=== PATIENT | male | born 1950 | race Caucasian/White ===

== ENCOUNTER 2018-01-08 16:38 | Observation (INO) | payer MEDICARE, OTHER ==
[~2018-01-08] VITALS: Ht 177.8 cm; Wt 81.3 kg
[2018-01-08 16:50] VITALS: BP 156/95; PULSE 79; RESP 16; TEMP 98.2; O2SAT 97
[2018-01-08] MEDS ORDERED: PRAM0.12 PO ×2 (16:56)
[2018-01-08] MEDS ORDERED: SODIUM CHLOR 0.9% 1000 ML INJ 1,000 ML IV ONE (17:00)
[2018-01-08] MEDS ORDERED: ONDANSETRON ODT 4 MG TAB PO ONE (17:00)
[2018-01-08] MEDS ORDERED: SODIUM CHLORIDE 0.9% FLUSH 10 ML FLUSH IV FLUSH PRN ×2 (17:00→18:45)
[2018-01-08] MEDS ORDERED: MORPHINE SULFATE 4 MG/ML INJ IV PUSH ONE (17:00)
--- NOTE | 2018-01-08 17:12 | PD ---
HPI Chief Complaint: Flank/Kidney Pain Time Seen by Provider: 16:54 Travel History International Travel<30 days: No Contact w/Intl Traveler<30days: No Traveled to known affect area: No History of Present Illness HPI 67-year-old male with history of kidney stones here for evaluation of right flank pain. The symptoms started 2 weeks ago, then seemed to have improved, then returned 2 days ago. The pain has been constant, sharp, radiates to his right lower abdomen, severe, associated with nausea and vomiting. He has not noted any hematuria. No dysuria. No fevers or chills. He had an outpatient renal scan performed this afternoon which revealed an obstructed right kidney. His urologist is Dr. Domingo. [facility] Social History Tobacco Use: No Allergies-Medications (Allergen,Severity, Reaction): Coded Allergies: No Known Allergies (Unverified , 01/08/18) Reported Meds & Prescriptions Reported Meds & Active Scripts Active Reported Pramipexole (Pramipexole Dihydrochloride) 0.125 Mg Tab 0.125 Mg PO DAILY Review of Systems Except as stated in HPI: all other systems reviewed are Neg Physical Exam Narrative GENERAL: Well-developed, well-nourished, awake, alert, no apparent distress. SKIN: Focused skin assessment warm/dry. No rash. HEAD: Atraumatic. Normocephalic. EYES: Pupils equal and round. No scleral icterus. No injection or drainage. ENT: No nasal bleeding or discharge. Mucous membranes pink and moist. NECK: Trachea midline. No JVD. CARDIOVASCULAR: Regular rate and rhythm. No murmur appreciated. RESPIRATORY: No accessory muscle use. Clear to auscultation. Breath sounds equal bilaterally. GASTROINTESTINAL: Abdomen soft, non-tender, nondistended. MUSCULOSKELETAL: No obvious deformities. No clubbing. No cyanosis. No edema. Moderate right CVA tenderness. No left CVA tenderness. No midline vertebral step-off or tenderness. NEUROLOGICAL: Awake and alert. No obvious cranial nerve deficits. Motor grossly within normal limits. Normal speech. PSYCHIATRIC: Appropriate mood and affect; insight and judgment normal. Data Data Last Documented VS Vital Signs Date Time Temp Pulse Resp B/P (MAP) Pulse Ox O2 Delivery O2 Flow Rate FiO2 01/08/18 18:17 80 18 139/83 (101) 99 01/08/18 17:50 Room Air 01/08/18 16:50 98.2 Orders Orders Complete Blood Count With Diff (01/08/18 16:59) Comprehensive Metabolic Panel (01/08/18 16:59) Prothrombin Time / Inr (Pt) (01/08/18 16:59) Act Partial Throm Time (Ptt) (01/08/18 16:59) Urinalysis - C+S If Indicated (01/08/18 16:59) Ct Abd/Pel W/O Iv Contrast (01/08/18 16:59) Iv Access Insert/Monitor (01/08/18 16:59) Ecg Monitoring (01/08/18 16:59) Oximetry (01/08/18 16:59) Sodium Chloride 0.9% Flush (Ns Flush) (01/08/18 17:00) Morphine Inj (Morphine Inj) (01/08/18 17:00) Ondansetron Odt (Zofran Odt) (01/08/18 17:00) Sodium Chlor 0.9% 1000 Ml Inj (Ns 1000 M (01/08/18 17:00) Ketorolac Inj (Toradol Inj) (01/08/18 17:45) Sodium Chlor 0.9% 1000 Ml Inj (Ns 1000 M (01/08/18 17:50) Admit Order (Ed Use Only) (01/08/18 18:32) Labs Laboratory Tests Test 01/08/18 17:10 01/08/18 17:15 Urine Color LIGHT-YELLOW Urine Turbidity CLEAR Urine pH 6.5 Urine Specific [place] 1.005 Urine Protein NEG mg/dL Urine Glucose (UA) NEG mg/dL Urine Ketones NEG mg/dL Urine Occult Blood MOD Urine Nitrite NEG Urine Bilirubin NEG Urine Urobilinogen LESS THAN 2.0 MG/DL Urine Leukocyte Esterase TRACE Urine RBC 39 /hpf Urine WBC 1 /hpf Microscopic Urinalysis Comment CULT NOT INDICATED White Blood Count 7.3 TH/MM3 Red Blood Count 5.33 MIL/MM3 Hemoglobin 15.5 GM/DL Hematocrit 45.8 % Mean Corpuscular Volume 86.0 FL Mean Corpuscular Hemoglobin 29.1 PG Mean Corpuscular Hemoglobin Concent 33.9 % Red Cell Distribution Width 13.4 % Platelet Count 186 TH/MM3 Mean Platelet Volume 8.7 FL Neutrophils (%) (Auto) 77.9 % Lymphocytes (%) (Auto) 13.2 % Monocytes (%) (Auto) 8.4 % Eosinophils (%) (Auto) 0.3 % Basophils (%) (Auto) 0.2 % Neutrophils # (Auto) 5.7 TH/MM3 Lymphocytes # (Auto) 1.0 TH/MM3 Monocytes # (Auto) 0.6 TH/MM3 Eosinophils # (Auto) 0.0 TH/MM3 Basophils # (Auto) 0.0 TH/MM3 CBC Comment DIFF FINAL Differential Comment Prothrombin Time 10.3 SEC Prothromb Time International Ratio 1.0 RATIO Activated Partial Thromboplast Time 27.0 SEC Blood Urea Nitrogen 28 MG/DL Creatinine 2.65 MG/DL Random Glucose 100 MG/DL Total Protein 7.3 GM/DL Albumin 3.7 GM/DL Calcium Level 8.6 MG/DL Alkaline Phosphatase 89 U/L Aspartate Amino Transf (AST/SGOT) 20 U/L Alanine Aminotransferase (ALT/SGPT) 22 U/L Total Bilirubin 0.9 MG/DL Sodium Level 138 MEQ/L Potassium Level 3.9 MEQ/L Chloride Level 102 MEQ/L Carbon Dioxide Level 28.7 MEQ/L Anion Gap 7 MEQ/L Estimat Glomerular Filtration Rate 24 ML/MIN MDM Medical Decision Making Medical Screen Exam Complete: Yes Emergency Medical Condition: Yes Differential Diagnosis Nephrolithiasis, ureterolithiasis, obstructive uropathy, pyelonephritis Narrative Course Vital signs reviewed. CBC is essentially unremarkable. CMP is remarkable for BUN 20, creatinine 2.65, GFR 24, otherwise unremarkable. UA shows moderate occult blood, 39 RBCs, not suggestive of UTI. CT abdomen pelvis: CONCLUSION: 1. 3 right ureteral calculi and 2 left ureteral calculi with bilateral hydronephrosis right greater than left. 2. Multiple bilateral renal calculi as well. 3. Multiple low-attenuation lesions in the liver most characteristic of cysts. 6:25 PM: Urologist Dr. Scott is at the bedside. He will admit the patient to his service. Diagnosis Primary Impression: Ureterolithiasis Additional Impression: Obstructive uropathy Jasvir Méndez MD January 08, 2018 17:12
[2018-01-08 17:32] LABS: BILIRUBIN, URINE NEG (NEG); BLOOD, URINE MOD (NEG); GLUCOSE,URINE NEG (NEG); KETONE, URINE NEG (NEG); NITRITE,URINE NEG (NEG); PH, URINE 6.5 (5.0-8.5); URINE COLOR LIGHT-YELLOW (YELLW/STRAW); URINE LEUKOCYTE ESTERASE TRACE (NEG)
[2018-01-08 17:36] LABS: PROTHROMBIN TIME - PATIENT 10.3 SEC (9.8-11.6)
[2018-01-08 17:37] LABS: AUTOMATED NEUTROPHIL # 5.7 TH/MM3 (1.8-7.7); BASOPHIL % 0.2 % (0.0-2.0); EOSINOPHIL % 0.3 % (0.0-4.0); HEMATOCRIT 45.8 % (39.0-51.0); HEMOGLOBIN 15.5 GM/DL (13.0-17.0); LYMPH % 13.2 % (9.0-44.0); MEAN CORPUSCULAR HEMOGLOBIN 29.1 PG (27.0-34.0); MEAN CORPUSCULAR HGB CONC 33.9 % (32.0-36.0); MEAN PLATELET VOLUME 8.7 FL (7.0-11.0); MONO % 8.4 % (0.0-8.0); MONOCYTE # 0.6 TH/MM3 (0-0.9); NEUT % 77.9 % (16.0-70.0); PLATELET COUNT 186 TH/MM3 (150-450); RED BLOOD COUNT 5.33 MIL/MM3 (4.50-5.90); RED CELL DISTRIBUTION WIDTH 13.4 % (11.6-17.2); WHITE BLOOD COUNT 7.3 TH/MM3 (4.0-11.0)
[2018-01-08 17:42] LABS: ALBUMIN 3.7 GM/DL (3.4-5.0); AST (GOT) 20 U/L (15-37); BICARBONATE 28.7 MEQ/L (21.0-32.0); BLOOD UREA NITROGEN 28 MG/DL (7-18); CALCIUM 8.6 MG/DL (8.5-10.1); CHLORIDE 102 MEQ/L (98-107); CREATININE 2.65 MG/DL (0.60-1.30); GLOMERULAR FILTRATION RATE 24 ML/MIN (>89); GLUCOSE,RANDOM 100 MG/DL (74-106); SODIUM (NA) 138 MEQ/L (136-145)
[2018-01-08 17:43] LABS: ALT (GPT) 22 U/L (12-78)
[2018-01-08 17:45] LABS: ALKALINE PHOSPHATASE 89 U/L (45-117); TOTAL BILIRUBIN ADULT 0.9 MG/DL (0.2-1.0); TOTAL PROTEIN 7.3 GM/DL (6.4-8.2)
[2018-01-08] MEDS ORDERED: KETOROLAC TROMETHAMINE 30 MG/ML (IVP) VIAL IV PUSH ONE (17:45)
[2018-01-08 17:50] VITALS: PULSE 86; RESP 18; O2SAT 98
[2018-01-08] MEDS ORDERED: SODIUM CHLOR 0.9% 1000 ML INJ 1,000 ML IV SCH (17:50)
[2018-01-08 18:17] VITALS: BP 139/83; PULSE 80; RESP 18; O2SAT 99
--- NOTE | 2018-01-08 18:20 | RADRPT ---
EXAM DATE: 01/08/2018 6:02 PM EDT AGE/SEX: 67 years / Male INDICATIONS: Right flank pain. CLINICAL DATA: This is the patient's initial encounter. Patient reports that signs and symptoms have been present for 1 week and indicates a pain score of 9/10. MEDICAL/SURGICAL HISTORY: Renal calculi. Diabetes. Appendectomy. RADIATION DOSE: 8.34 CTDI (mGy) COMPARISON: None. TECHNIQUE: Multiple contiguous axial images were obtained through the abdomen. Images were obtained using multiple row detector helical technique. Using dose reduction techniques, radiation dose was ke pt as low as reasonably achievable to obtain optimal diagnostic quality images. FINDINGS: Lower Lungs: The visualized lower lungs are clear. Liver: The liver has a homogeneous density with multiple scattered low-attenuation lesions. There is no dilation of the biliary tree. Spleen: Homogeneous density without enlargement. Pancreas: Unremarkable without mass or calcification. Kidneys: The right kidney is prominent and demonstrates moderate to severe hydronephrosis with multi ple right renal calculi measuring up to approximately a centimeter. There are 3 right ureteral calcul i. There is a proximal 8 mm ureteral calculus as well as 2 distal ureteral calculi measuring approxim ately 4 and 7 mm in diameter. The left kidney demonstrates moderate hydronephrosis and multiple calcu li as well measuring up to approximately a centimeter. There is mild dilatation of the ureter and the re are 2 distal left ureteral calculi. These measure 5 to 6 mm in greatest diameter. Adrenal Glands: Unremarkable. Aorta: The aorta and proximal iliac vessels are grossly unremarkable without aneurysmal dilation. Bowel/Mesentery: The bowel loops are grossly unremarkable. The cecum and sigmoid colon have a normal configuration. Abdominal Wall: Intact. Retroperitoneum: No evidence of adenopathy in the retrocrural, para-aortic, or deep pelvic regions. Bladder: Contours are smooth. Reproductive Organs: No abnormal masses or calcifications seen. Inguinal: The inguinal region is unremarkable without evidence of adenopathy. Bony Structures: Unremarkable. CONCLUSION: 1. 3 right ureteral calculi and 2 left ureteral calculi with bilateral hydronephrosis right greater than left. 2. Multiple bilateral renal calculi as well. 3. Multiple low-attenuation lesions in the liver most characteristic of cysts. Electronically signed by: Vinny Reis MD 01/08/2018 6:19 PM EDT
[2018-01-08] MEDS ORDERED: HYDROmorphone HCL PF 2 MG/ML VIAL IV PUSH PRN (18:45)
[2018-01-08] MEDS ORDERED: HYDROmorphone HCL PF 1 MG/ML VIAL IV PUSH PRN (18:45)
[2018-01-08] MEDS ORDERED: oxyCODONE/ACETAMINOPHEN 5 MG/325 MG TAB PO PRN ×2 (18:45)
[2018-01-08] MEDS ORDERED: Post-op Orders (for Pharmacy) XX ONE (18:45)
--- NOTE | 2018-01-08 18:45 | HHI.HP ---
HPI Service Urology Primary Care Physician No Primary Care Physician Admission Diagnosis Ureterolithiasis, obstructive uropathy Diagnoses: Chief Complaint: Right flank pain History of Present Illness 67-year-old gentleman with history uric acid nephrolithiasis who presents now with acute onset right flank pain. Patient actually had a renal scan with Lasix washout ordered by his established urologist Dr. Guy that demonstrated obstruction of the right kidney. Patient was separately transferred from radiology to the emergency room for further evaluation. A CT scan stone protocol study was ordered that demonstrated a large obstructing right proximal ureteral calculus along with multiple bilateral renal calculi. I discussed placing a right ureteral stent this evening however the patient adamantly refused this. He states that he did have a stent in the past which she did not tolerate well. In fact he said that the stent caused more pain than the stones themselves. I discussed placing him in observation overnight and release him in the morning if his pain is adequately controlled with oral medication. I discussed that the shockwave lithotripsy machine is not available here at [facility] for at least 2 weeks. Review of Systems Constitutional: DENIES: Fever, Chills Cardiovascular: DENIES: Chest pain Gastrointestinal: COMPLAINS OF: Abdominal pain (Right side) Genitourinary: DENIES: Hematuria, Dysuria Musculoskeletal: COMPLAINS OF: Back pain (Right flank) Except as stated in HPI: all other systems reviewed are Neg Past Family Social History Past Medical History Nephrolithiasis Chronic back pain Past Surgical History Status post laminectomy Status post knee arthroscopy Reported Medications Refer to EMR Allergies: Coded Allergies: No Known Allergies (Unverified , 01/08/18) Active Ordered Medications Refer to EMR Family History Reviewed and noncontributory Social History Non-smoker No history alcohol abuse Physical Exam Vital Signs Date Time Temp Pulse Resp B/P (MAP) Pulse Ox O2 Delivery O2 Flow Rate FiO2 01/08/18 18:17 80 18 139/83 (101) 99 01/08/18 17:50 86 18 98 Room Air 01/08/18 16:50 98.2 79 16 156/95 (115) 97 Physical Exam GENERAL: This is a well-nourished, well-developed patient, in no apparent distress. SKIN: No rashes, ecchymoses or lesions. Cool and dry. HEAD: Atraumatic. Normocephalic. No temporal or scalp tenderness. EYES: Pupils equal round and reactive. Extraocular motions intact. No scleral icterus. No injection or drainage. ENT: Nose without bleeding, purulent drainage or septal hematoma. Throat without erythema, tonsillar hypertrophy or exudate. Uvula midline. Airway patent. NECK: Trachea midline. No JVD or lymphadenopathy. Supple, nontender, no meningeal signs. CARDIOVASCULAR: Regular rate and rhythm without murmurs, gallops, or rubs. RESPIRATORY: Clear to auscultation. Breath sounds equal bilaterally. No wheezes , rales, or rhonchi. GASTROINTESTINAL: Abdomen soft, non-tender, nondistended. No hepato-splenomegaly , or palpable masses. No guarding. GENITOURINARY: No CVA tenderness MUSCULOSKELETAL: Extremities without clubbing, cyanosis, or edema. No joint tenderness, effusion, or edema noted. No calf tenderness. Negative Homans sign bilaterally. NEUROLOGICAL: Awake and alert. Cranial nerves II through XII intact. Motor and sensory grossly within normal limits. Five out of 5 muscle strength in all muscle groups. Normal speech. Lab results reviewed: Yes Laboratory Tests Test 01/08/18 17:10 01/08/18 17:15 Urine Color LIGHT-YELLOW Urine Turbidity CLEAR Urine pH 6.5 Urine Specific [place] 1.005 Urine Protein NEG Urine Glucose (UA) NEG Urine Ketones NEG Urine Occult Blood MOD Urine Nitrite NEG Urine Bilirubin NEG Urine Urobilinogen LESS THAN 2.0 Urine Leukocyte Esterase TRACE Urine RBC 39 Urine WBC 1 Microscopic Urinalysis Comment CULT NOT INDICATED White Blood Count 7.3 Red Blood Count 5.33 Hemoglobin 15.5 Hematocrit 45.8 Mean Corpuscular Volume 86.0 Mean Corpuscular Hemoglobin 29.1 Mean Corpuscular Hemoglobin Concent 33.9 Red Cell Distribution Width 13.4 Platelet Count 186 Mean Platelet Volume 8.7 Neutrophils (%) (Auto) 77.9 Lymphocytes (%) (Auto) 13.2 Monocytes (%) (Auto) 8.4 Eosinophils (%) (Auto) 0.3 Basophils (%) (Auto) 0.2 Neutrophils # (Auto) 5.7 Lymphocytes # (Auto) 1.0 Monocytes # (Auto) 0.6 Eosinophils # (Auto) 0.0 Basophils # (Auto) 0.0 CBC Comment DIFF FINAL Differential Comment Prothrombin Time 10.3 Prothromb Time International Ratio 1.0 Activated Partial Thromboplast Time 27.0 Blood Urea Nitrogen 28 Creatinine 2.65 Random Glucose 100 Total Protein 7.3 Albumin 3.7 Calcium Level 8.6 Alkaline Phosphatase 89 Aspartate Amino Transf (AST/SGOT) 20 Alanine Aminotransferase (ALT/SGPT) 22 Total Bilirubin 0.9 Sodium Level 138 Potassium Level 3.9 Chloride Level 102 Carbon Dioxide Level 28.7 Anion Gap 7 Estimat Glomerular Filtration Rate 24 Result Diagram: 01/08/18 1715 01/08/18 1715 Personally reviewed images: Yes Imaging Last Impressions Abdomen/Pelvis CT 01/08/18 1000 Signed Impressions: CONCLUSION: 1. 3 right ureteral calculi and 2 left ureteral calculi with bilateral hydrone phrosis right greater than left. 2. Multiple bilateral renal calculi as well. 3. Multiple low-attenuation lesions in the liver most characteristic of cysts. Caprini VTE Risk Assessment Caprini VTE Risk Assessment: No/Low Risk (score <= 1) Caprini Risk Assessment Model Point Value = 1 Point Value = 2 Point Value = 3 Point Value = 5 Age 41-60 Minor surgery BMI > 25 kg/m2 Swollen legs Varicose veins or History of unexplained or recurrent spontaneous Oral contraceptives or hormone replacement Sepsis (< 1 month) Serious lung disease, including pneumonia (< 1 month) Abnormal pulmonary function Acute myocardial infarction Congestive heart failure (< 1 month) History of inflammatory bowel disease Medical patient at bed rest Age 61-74 Arthroscopic surgery Major open surgery (> 45 min) Laparoscopic surgery (> 45 min) Malignancy Confined to bed (> 72 hours) Immobilizing plaster cast Central venous access Age >= 75 History of VTE Family history of VTE Factor V Leiden Prothrombin [id number] Lupus anticoagulant Anticardiolipin antibodies Elevated serum homocysteine Heparin-induced thrombocytopenia Other congenital or acquired thrombophilia Stroke (< 1 month) Elective arthroplasty Hip, pelvis, or leg fracture Acute spinal cord injury (< 1 month) Prophylaxis Regimen Total Risk Factor Score Risk Level Prophylaxis Regimen 0-1 Low Early ambulation 2 Moderate Order ONE of the following: *Sequential Compression Device (SCD) *Heparin 5000 units SQ BID 3-4 Higher Order ONE of the following medications: *Heparin 5000 units SQ TID *Enoxaparin/Lovenox 40 mg SQ daily (WT < 150 kg, CrCl > 30 mL/min) *Enoxaparin/Lovenox 30 mg SQ daily (WT < 150 kg, CrCl > 10-29 mL/min) *Enoxaparin/Lovenox 30 mg SQ BID (WT < 150 kg, CrCl > 30 mL/min) AND/OR *Sequential Compression Device (SCD) 5 or more Highest Order ONE of the following medications: *Heparin 5000 units SQ TID (Preferred with Epidurals) *Enoxaparin/Lovenox 40 mg SQ daily (WT < 150 kg, CrCl > 30 mL/min) *Enoxaparin/Lovenox 30 mg SQ daily (WT < 150 kg, CrCl > 10-29 mL/min) *Enoxaparin/Lovenox 30 mg SQ BID (WT < 150 kg, CrCl > 30 mL/min) AND *Sequential Compression Device (SCD) Assessment and Plan Assessment and Plan Urologic impression: 1. Right flank pain related to obstructing right proximal ureteral calculus 2. Bilateral nephrolithiasis Plan: 1. Place in observation overnight for pain management 2. Discharge home tomorrow morning pain managed with oral medications and vital stable 3. Place a right ureteral stent if pain worsens and patient agrees Isidro Scott MD January 08, 2018 18:45
[2018-01-08] MEDS ORDERED: ONDANSETRON ODT 4 MG TAB PO PRN (19:00)
[2018-01-08 19:20] VITALS: BP 123/74; PULSE 85; RESP 16; O2SAT 97
[2018-01-08] MEDS: DEXT 5%-NACL 0.45% 1000 ML INJ 1,000 ML IV SCH (20:08)
[2018-01-08] MEDS: SODIUM CHLORIDE 0.9% FLUSH 10 ML FLUSH IV FLUSH SCH (20:20)
[2018-01-08 21:36] VITALS: BP 124/76; PULSE 68; RESP 18; TEMP 97.5; O2SAT 97
[2018-01-08 23:28] VITALS: BP 114/62; PULSE 66; RESP 17; TEMP 98.3; O2SAT 96
[2018-01-09 04:20] VITALS: BP 107/61; PULSE 63; RESP 18; TEMP 97.9; O2SAT 95
[2018-01-09 07:08] LABS: HEMATOCRIT 39.9 % (39.0-51.0); HEMOGLOBIN 13.3 GM/DL (13.0-17.0); MEAN CELL VOLUME 86.4 FL (80.0-100.0); MEAN CORPUSCULAR HEMOGLOBIN 28.7 PG (27.0-34.0); MEAN CORPUSCULAR HGB CONC 33.2 % (32.0-36.0); MEAN PLATELET VOLUME 8.7 FL (7.0-11.0); PLATELET COUNT 154 TH/MM3 (150-450); RED BLOOD COUNT 4.62 MIL/MM3 (4.50-5.90); RED CELL DISTRIBUTION WIDTH 13.6 % (11.6-17.2); WHITE BLOOD COUNT 5.1 TH/MM3 (4.0-11.0)
[2018-01-09 07:37] LABS: BICARBONATE 27.1 MEQ/L (21.0-32.0); CALCIUM 7.9 MG/DL (8.5-10.1); CREATININE 3.89 MG/DL (0.60-1.30)
[2018-01-09 08:00] VITALS: BP 115/66; PULSE 59; RESP 18; TEMP 97.4; O2SAT 98
[2018-01-09] MEDS: DEXT 5%-NACL 0.45% 1000 ML INJ 1,000 ML IV SCH (08:03)
[2018-01-09] MEDS: SODIUM CHLORIDE 0.9% FLUSH 10 ML FLUSH IV FLUSH SCH (08:24)
--- NOTE | 2018-01-09 08:25 | HHI.DS ---
Discharge Summary Admission Date January 08, 2018 at 18:33 Admitting Diagnosis Ureterolithiasis, obstructive uropathy (1) Ureterolithiasis Diagnosis: Principal ICD Codes: N20.1 - Calculus of ureter Status: Acute (2) Obstructive uropathy Diagnosis: Principal ICD Codes: N13.9 - Obstructive and reflux uropathy, unspecified Status: Acute Procedures None Brief History Patient presented to the emergency room with right flank pain after undergoing an outpatient Lasix renal scan that demonstrated obstruction of the right kidney. Further workup included a CT scan stone protocol that demonstrated a large obstructing right proximal ureteral calculus causing hydronephrosis. Also noted were multiple bilateral renal calculi. Patient placed on observation for pain management. CBC/BMP: 01/09/18 0606 01/09/18 0606 Significant Findings Laboratory Tests Test 01/08/18 17:10 01/08/18 17:15 01/09/18 06:06 Urine Occult Blood MOD (NEG) Urine Leukocyte Esterase TRACE (NEG) Urine RBC 39 /hpf (0-3) Neutrophils (%) (Auto) 77.9 % (16.0-70.0) Monocytes (%) (Auto) 8.4 % (0.0-8.0) Blood Urea Nitrogen 28 MG/DL (7-18) 33 MG/DL (7-18) Creatinine 2.65 MG/DL (0.60-1.30) 3.89 MG/DL (0.60-1.30) Estimat Glomerular Filtration Rate 24 ML/MIN (>89) 16 ML/MIN (>89) Calcium Level 7.9 MG/DL (8.5-10.1) PE at Discharge Abdomen soft, nondistended, nontender No CVA tenderness Extremities well-perfused, nontender Hospital Course Patient placed under observation for pain management. He only required 1 oral dose of Percocet for pain management. On the morning of January 09, the patient's pain was adequately controlled. Arrangements already had been made for the patient to be discharged home with follow-up over at his established urology group to undergo right-sided shockwave lithotripsy. Laboratory studies demonstrated elevation of the serum creatinine and patient was advised to let his established urologist know about this. I had offered the patient the opportunity to have a right ureteral stent placed soon after arrival to the emergency room however the patient refused as he had not tolerated statins well in the past. Pt Condition on Discharge: Good Discharge Disposition: Discharge Home Discharge Instructions DIET: Follow Instructions for: Nothing By Mouth Activities you can perform: Regular-No Restrictions Isidro Scott MD January 09, 2018 08:25
== END 2018-01-09 08:50 | disposition home or self-care (01) ==
LOC: NEPD 16:38 → NEDA 18:33 → N06B 21:18
PROVIDERS: ADMIT Urology; ATTEND Urology
DX: N20.2 Calculus of kidney with calculus of ureter (principal); N13.39 Other hydronephrosis; N13.9 Obstructive and reflux uropathy, unspecified; G89.29 Other chronic pain; R10.31 Right lower quadrant pain; Z87.442 Personal history of urinary calculi
CPT/HCPCS: 74176; 80048; 80053; 81001; 85025; 85027; 85610; 85730; 96361; 96374; 96375; 99285; G0378; J1885; J2270; J7030

== ENCOUNTER → 2018-01-08 | Outpatient (CLI) | payer MEDICARE, OTHER ==
[~2018-01-08] MED LIST: ALLO100T PO; CIPR-9 PO; CIPR250T52 PO; COLA100C5 PO; FUROSEMIDE 40 MG/4 ML VIAL ONE; IMIT50TA PO; OXYC1TAB63 PO; POTA10CA PO; PRAM0.12 PO; TAMS5CAP PO
--- NOTE | 2018-01-08 19:33 | RADRPT ---
EXAM DATE: 01/08/2018 4:39 PM EDT AGE/SEX: 67 years / Male INDICATIONS: Right flank pain. Kidney stones. CLINICAL DATA: This is the patient's initial encounter. Patient reports that signs and symptoms have been present for 1 day and indicates a pain score of 4/10. MEDICAL/SURGICAL HISTORY: . . Back. COMPARISON: [facility] [place]ELVIS W/O CONTRAST, 01/08/2018. . TECHNIQUE: Following the intravenous administration of radiotracer, dynamic imaging of flow and excre tory phases was performed. DOSE: 20.8 mCi Tc99m DTPA IV MEDICATION: 40 mg Lasix IV at 13 min minutes. post inj FINDINGS: CT scans demonstrated multiple bilateral renal and ureteral stones with bilateral hydronep hrosis. Flow: There is symmetric arrival of bolus to both kidneys. There is homogeneous perfusion to both ki dneys. Differential Function: 44 % on Right. 56 % on Left. Excretion: There is normal renal cortical transit time and prompt excretion of radiotracer from the left kidney. On the right side, there is an obstructive pattern with retained cortical activity and a n increasing nephrogram. There is some minimal excretion into the ureter, with less than 5% decrease, characteristic of a high-grade obstruction. CONCLUSION: 1. High-grade obstructive pattern on the right side. 2. On the left side, there is prompt excretion of radiotracer which occurs prior to Lasix administra tion. This suggests that there is no significant obstruction despite multiple distal ureteral stones. Electronically signed by: Marques James MD 01/08/2018 7:32 PM EDT
== END ==
LOC: HRAD 15:40
DX: N13.30 Unspecified hydronephrosis (principal)
CPT/HCPCS: 78708; A9539; J1940

== ENCOUNTER 2018-01-11 17:01 | Inpatient (IN) | payer MEDICARE ==
[~2018-01-11] VITALS: Ht 177.8 cm; Wt 78.0 kg
[~2018-01-11 17:01] MED LIST changes: -ALLO100T PO; -CIPR-9 PO; -CIPR250T52 PO; -COLA100C5 PO; -FUROSEMIDE 40 MG/4 ML VIAL ONE; -IMIT50TA PO; -OXYC1TAB63 PO; -POTA10CA PO; -TAMS5CAP PO
[2018-01-11 17:05] VITALS: BP 139/76; PULSE 75; RESP 20; TEMP 98.3; O2SAT 97
[2018-01-11] MEDS ORDERED: POTA10CA PO ×2 (17:27)
[2018-01-11] MEDS ORDERED: TAMS5CAP PO (17:28)
[2018-01-11] MEDS ORDERED: ALLO100T PO ×2 (17:28)
[2018-01-11] MEDS ORDERED: RESP: ALBUTEROL 2.5 MG/IPRATROPIUM 0.5 MG NEB (SCH) INH ONE (17:30)
[2018-01-11] MEDS ORDERED: ONDANSETRON ODT 4 MG TAB PO ONE (17:30)
[2018-01-11] MEDS ORDERED: SODIUM CHLOR 0.9% 1000 ML INJ 1,000 ML IV ONE (17:30)
[2018-01-11] MEDS ORDERED: HYDROmorphone HCL PF 2 MG/ML VIAL IV PUSH ONE ×2 (17:30→19:45)
--- NOTE | 2018-01-11 17:35 | PD ---
HPI Chief Complaint: Flank/Kidney Pain Time Seen by Provider: 17:13 Travel History International Travel<30 days: No Contact w/Intl Traveler<30days: No Traveled to known affect area: No History of Present Illness HPI 67 years old male complains of left flank pain. Patient was admitted January 08 and discharged January 09 from [facility] with diagnosis of ureterolithiasis and obstructive uropathy. Patient was seen by Dr. Hillman, his urologist and had bilateral lithotripsy 2 days ago with ureteral stent placement on the right side. Patient was discharged home with pain medication. Patient states that he started having severe left flank pain and left low back pain since last night. Patient states that he has intermittent chills at home. Patient states that he has severe nausea unable to keep down pain medication. Patient has been taking Zofran as needed for nausea without much relief. Patient denies any chest pain or shortness of breath. Patient denies any dysuria frequency. On a scale of 1-10 the pain is a 10. PFSH Past Medical History Diminished Hearing: No Kidney Stones: Yes Musculoskeletal: Yes (CHRONIC BACK PAIN ) Neurologic: Yes (RLS) Psychiatric: No Immunizations Current: Yes Past Surgical History Tonsillectomy: Yes Social History Alcohol Use: No Tobacco Use: No Substance Use: No Allergies-Medications (Allergen,Severity, Reaction): Coded Allergies: No Known Allergies (Unverified , 01/11/18) Reported Meds & Prescriptions Reported Meds & Active Scripts Active Reported Allopurinol 100 Mg Tab 100 Mg PO DAILY Flomax (Tamsulosin HCl) 0.4 Mg Cap 0.4 Mg PO HS Potassium Chloride ER (Potassium Chloride) 10 Meq Cap 10 Meq PO TID Pramipexole (Pramipexole Dihydrochloride) 0.125 Mg Tab 0.125 Mg PO DAILY Review of Systems General / Constitutional: No: Fever Eyes: No: Visual changes HENT: No: Headaches Cardiovascular: No: Chest Pain or Discomfort Respiratory: No: Shortness of Breath Gastrointestinal: Positive: Nausea, Abdominal Pain Genitourinary: No: Dysuria Musculoskeletal: No: Pain Skin: No Rash Neurologic: No: Weakness Psychiatric: No: Depression Endocrine: No: Polydipsia Hematologic/Lymphatic: No: Easy Bruising Physical Exam Narrative GENERAL: Well-nourished, well-developed patient. SKIN: Focused skin assessment warm/dry. HEAD: Normocephalic. EYES: No scleral icterus. No injection or drainage. NECK: Supple, trachea midline. No JVD or lymphadenopathy. CARDIOVASCULAR: Regular rate and rhythm without murmurs, gallops, or rubs. RESPIRATORY: Breath sounds equal bilaterally. No accessory muscle use. GASTROINTESTINAL: Abdomen soft, nondistended. Patient has mild tenderness on palpation left lower quadrant of the abdomen. No rebound tenderness. No mass. MUSCULOSKELETAL: No cyanosis, or edema. BACK: Patient has moderate tenderness on palpation left flank and left back area. Neurologic exam normal. Data Data Last Documented VS Vital Signs Date Time Temp Pulse Resp B/P (MAP) Pulse Ox O2 Delivery O2 Flow Rate FiO2 01/11/18 18:37 20 01/11/18 17:05 98.3 75 139/76 (97) 97 Orders Orders Albuterol-Ipratropium Neb (Duoneb Neb) (01/11/18 17:30) Electrocardiogram (01/11/18 17:25) Complete Blood Count With Diff (01/11/18 17:25) Comprehensive Metabolic Panel (01/11/18 17:25) Prothrombin Time / Inr (Pt) (01/11/18 17:25) Act Partial Throm Time (Ptt) (01/11/18 17:25) Urinalysis - C+S If Indicated (01/11/18 17:25) Chest, Single Ap (01/11/18 17:25) Ct Abd/Pel W/O Iv Contrast (01/11/18 17:25) Iv Access Insert/Monitor (01/11/18 17:25) Ecg Monitoring (01/11/18 17:25) Oximetry (01/11/18 17:25) Sodium Chlor 0.9% 1000 Ml Inj (Ns 1000 M (01/11/18 17:30) Hydromorphone Pf Inj (Dilaudid Pf Inj) (01/11/18 17:30) Ondansetron Odt (Zofran Odt) (01/11/18 17:30) Metoclopramide Inj (Reglan Inj) (01/11/18 18:00) Diphenhydramine Inj (Benadryl Inj) (01/11/18 18:00) Labs Laboratory Tests Test 01/11/18 17:38 01/11/18 18:20 White Blood Count 6.5 TH/MM3 Red Blood Count 4.67 MIL/MM3 Hemoglobin 13.3 GM/DL Hematocrit 40.0 % Mean Corpuscular Volume 85.7 FL Mean Corpuscular Hemoglobin 28.6 PG Mean Corpuscular Hemoglobin Concent 33.3 % Red Cell Distribution Width 13.2 % Platelet Count 186 TH/MM3 Mean Platelet Volume 8.8 FL Neutrophils (%) (Auto) 78.8 % Lymphocytes (%) (Auto) 10.5 % Monocytes (%) (Auto) 9.9 % Eosinophils (%) (Auto) 0.6 % Basophils (%) (Auto) 0.2 % Neutrophils # (Auto) 5.1 TH/MM3 Lymphocytes # (Auto) 0.7 TH/MM3 Monocytes # (Auto) 0.6 TH/MM3 Eosinophils # (Auto) 0.0 TH/MM3 Basophils # (Auto) 0.0 TH/MM3 CBC Comment DIFF FINAL Differential Comment Prothrombin Time 10.6 SEC Prothromb Time International Ratio 1.0 RATIO Activated Partial Thromboplast Time 30.6 SEC Blood Urea Nitrogen 25 MG/DL Creatinine 2.31 MG/DL Random Glucose 107 MG/DL Total Protein 6.5 GM/DL Albumin 3.0 GM/DL Calcium Level 8.3 MG/DL Alkaline Phosphatase 77 U/L Aspartate Amino Transf (AST/SGOT) 16 U/L Alanine Aminotransferase (ALT/SGPT) 21 U/L Total Bilirubin 0.8 MG/DL Sodium Level 136 MEQ/L Potassium Level 4.6 MEQ/L Chloride Level 101 MEQ/L Carbon Dioxide Level 28.6 MEQ/L Anion Gap 6 MEQ/L Estimat Glomerular Filtration Rate 28 ML/MIN [facility] Medical Decision Making Medical Screen Exam Complete: Yes Emergency Medical Condition: Yes Interpretation(s) Last Impressions Chest X-Ray 01/11/181724 Signed Impressions: CONCLUSION: Normal. Abdomen/Pelvis CT 01/11/181724 Signed Impressions: CONCLUSION: 1. Interval placement of a right double-J stent which is in good position. Sli ght reduction in the degree of hydronephrosis on the right. 2. Unchanged left hydronephrosis and left ureteral stones. 3. Multiple tiny hepatic lesions which are poorly characterized on this exam b ut likely relate to cysts. 192 PM. CBC within normal limit. BUN 25. Creatinine 2.31. GFR 28. Differential Diagnosis Differential diagnosis including ureterolithiasis, obstructive uropathy, UTI, pyelonephritis, electrolyte abnormality, acute kidney injury. Narrative Course 67 years old male with left flank pain and left back pain. History of ureterolithiasis. Patient status post bilateral lithotripsy and stent placement on the right side 2 days ago. Patient having chills and severe nausea unable to keep pain medication down. Normal saline solution 1 L IV bolus. Dilaudid 1 mg IV. Zofran 4 mg ODT. Rocephin 1 g IV given. Normal saline solution 1 25 cc an hour. Diagnosis Primary Impression: Ureterolithiasis Additional Impression: Obstructive uropathy Admitting Information Admitting Physician Requests: Admit Samuel Fajardo MD January 11, 2018 17:35
--- NOTE | 2018-01-11 17:46 | RADRPT ---
EXAM DATE: 01/11/2018 5:42 PM EDT AGE/SEX: 67 years / Male INDICATIONS: Short of breath CLINICAL DATA: This is the patient's initial encounter. Patient reports that signs and symptoms have been present for 1 day and indicates a pain score of 0/10. MEDICAL/SURGICAL HISTORY: . Renal calculi. Diabetes. . Appendectomy. COMPARISON: None. FINDINGS: A single AP view of the chest demonstrates the lungs to be symmetrically aerated without evidence of mass, infiltrate or effusion. The cardiomediastinal contours are unremarkable. Osseous structures a re intact. CONCLUSION: Normal. Electronically signed by: Marques Ly MD 01/11/2018 5:45 PM EDT
[2018-01-11] MEDS ORDERED: METOCLOPRAMIDE HCL 10 MG/2 ML VIAL IV PUSH ONE (18:00)
[2018-01-11] MEDS ORDERED: diphenhydrAMINE HCL 50 MG/ML VIAL IV PUSH ONE (18:00)
--- NOTE | 2018-01-11 18:24 | RADRPT ---
EXAM DATE: 01/11/2018 6:16 PM EDT AGE/SEX: 67 years / Male INDICATIONS: Left flank pain. CLINICAL DATA: This is the patient's initial encounter. Patient reports that signs and symptoms have been present for 1 day and indicates a pain score of 10/10. MEDICAL/SURGICAL HISTORY: Renal calculi. . Right Ureteral stent. RADIATION DOSE: 7.83 CTDI (mGy) COMPARISON: CT of the abdomen and pelvis 01/08/2018. TECHNIQUE: Multiple contiguous axial images were obtained through the abdomen. Images were obtained using multiple row detector helical technique. Using dose reduction techniques, radiation dose was ke pt as low as reasonably achievable to obtain optimal diagnostic quality images. FINDINGS: Lower Lungs: There is a tiny right pleural effusion which is new. Bibasilar atelectasis.. Liver: The liver has a homogeneous density. Numerous scattered low-density foci which are poorly chandan acterized but likely relating to cysts. . There is no dilation of the biliary tree. Spleen: Homogeneous density without enlargement. Pancreas: Unremarkable without mass or calcification. Kidneys: There has been interval placement of a double-J stent on the right. The stent is in good po sition. 2 small stones are seen adjacent to the distal aspect of the stent occurring 1 cm from the UV J. The stone seen at the UPJ on the prior examination has been pushed back into the kidney. Right-angelica ed hydronephrosis is slightly less pronounced. The left side is unchanged. Again seen are 2 stones in volving the left ureter. One at the crossing of the iliac vessels and the second at the UPJ. Both lori sure 7 mm in size. Numerous calculi are seen throughout the left kidney. Significant hydronephrosis a nd hydroureter on the left is unchanged.. No perinephric fluid collections. Adrenal Glands: Unremarkable. Aorta: The aorta and proximal iliac vessels are grossly unremarkable without aneurysmal dilation. Bowel/Mesentery: The bowel loops are grossly unremarkable. The cecum and sigmoid colon have a normal configuration. Abdominal Wall: Intact. Retroperitoneum: No evidence of adenopathy in the retrocrural, para-aortic, or deep pelvic regions. Bladder: Contours are smooth. 2 tiny stones seen involving the bladder. Each measures 1 to 2 mm. A s mall amount of intraluminal air. Reproductive Organs: No abnormal masses or calcifications seen. Inguinal: The inguinal region is unremarkable without evidence of adenopathy. Bony Structures: Unremarkable. CONCLUSION: 1. Interval placement of a right double-J stent which is in good position. Slight reduction in the d egree of hydronephrosis on the right. 2. Unchanged left hydronephrosis and left ureteral stones. 3. Multiple tiny hepatic lesions which are poorly characterized on this exam but likely relate to cy sts. Electronically signed by: Marques Ly MD 01/11/2018 6:23 PM EDT
[2018-01-11 18:45] LABS: AUTOMATED NEUTROPHIL # 5.1 TH/MM3 (1.8-7.7); BASOPHIL % 0.2 % (0.0-2.0); EOSINOPHIL % 0.6 % (0.0-4.0); HEMOGLOBIN 13.3 GM/DL (13.0-17.0); LYMPH % 10.5 % (9.0-44.0); LYMPHOCYTE # 0.7 TH/MM3 (1.0-4.8); MEAN CELL VOLUME 85.7 FL (80.0-100.0); MEAN CORPUSCULAR HEMOGLOBIN 28.6 PG (27.0-34.0); MEAN CORPUSCULAR HGB CONC 33.3 % (32.0-36.0); MEAN PLATELET VOLUME 8.8 FL (7.0-11.0); MONO % 9.9 % (0.0-8.0); MONOCYTE # 0.6 TH/MM3 (0-0.9); NEUT % 78.8 % (16.0-70.0); PLATELET COUNT 186 TH/MM3 (150-450); RED BLOOD COUNT 4.67 MIL/MM3 (4.50-5.90); RED CELL DISTRIBUTION WIDTH 13.2 % (11.6-17.2); WHITE BLOOD COUNT 6.5 TH/MM3 (4.0-11.0)
[2018-01-11 19:03] LABS: PROTHROMBIN TIME - PATIENT 10.6 SEC (9.8-11.6)
[2018-01-11 19:11] LABS: ALKALINE PHOSPHATASE 77 U/L (45-117); ALT (GPT) 21 U/L (12-78); AST (GOT) 16 U/L (15-37); BICARBONATE 28.6 MEQ/L (21.0-32.0); BLOOD UREA NITROGEN 25 MG/DL (7-18); CALCIUM 8.3 MG/DL (8.5-10.1); CHLORIDE 101 MEQ/L (98-107); CREATININE 2.31 MG/DL (0.60-1.30); GLOMERULAR FILTRATION RATE 28 ML/MIN (>89); GLUCOSE,RANDOM 107 MG/DL (74-106); SODIUM (NA) 136 MEQ/L (136-145); TOTAL BILIRUBIN ADULT 0.8 MG/DL (0.2-1.0); TOTAL PROTEIN 6.5 GM/DL (6.4-8.2)
[2018-01-11 19:21] LABS: BACTERIA, URINE MOD /hpf; BILIRUBIN, URINE NEG (NEG); BLOOD, URINE MOD (NEG); GLUCOSE,URINE NEG (NEG); KETONE, URINE NEG (NEG); MUCUS URINE FEW /lpf (OCC); NITRITE,URINE NEG (NEG); PH, URINE 5.5 (5.0-8.5); SQUAMOUS EPITHELIAL CELL URINE <1 /hpf (0-5); URINE COLOR YELLOW (YELLW/STRAW); URINE LEUKOCYTE ESTERASE LARGE (NEG)
[2018-01-11 19:32] VITALS: BP 141/72; PULSE 84; RESP 16; TEMP 99.4; O2SAT 100
[2018-01-11] MEDS ORDERED: SODIUM CHLOR 0.9% 1000 ML INJ 1,000 ML IV SCH (19:45)
[2018-01-11] MEDS ORDERED: cefTRIAXone INJ 1,000 MG in SODIUM CHLORIDE 0.9% INJ 100 ML IV ONE (19:45)
[2018-01-11] MEDS ORDERED: BISACODYL 10 MG SUPP RECTAL PRN (21:00)
[2018-01-11] MEDS ORDERED: SODIUM CHLORIDE 0.9% FLUSH 10 ML FLUSH IV FLUSH PRN (21:00)
[2018-01-11] MEDS ORDERED: MAGNESIUM HYDROXIDE SUSP 30 ML CUP PO PRN (21:00)
[2018-01-11] MEDS: SODIUM CHLORIDE 0.9% FLUSH 10 ML FLUSH IV FLUSH SCH (21:00)
[2018-01-11] MEDS ORDERED: LACTULOSE SYRUP 20 GM/30 ML CUP PO PRN (21:00)
[2018-01-11] MEDS ORDERED: SENNOSIDES 8.6 MG TAB PO PRN (21:00)
[2018-01-11] MEDS ORDERED: NALOXONE HCL 0.4 MG/ML AMP IV PUSH PRN (21:00)
[2018-01-11] MEDS ORDERED: ONDANSETRON ODT 4 MG TAB SL PRN (21:15)
--- NOTE | 2018-01-11 21:26 | HHI.HP ---
HPI Service [facility] Hospitalists Primary Care Physician Unknown Admission Diagnosis Ureterolithiasis. Obstructive uropathy. UTI. Chief Complaint: severe back and left flank pain Travel History International Travel<30 Days: No Contact w/Intl Traveler <30 Da: No Traveled to Known Affected Are: No History of Present Illness 67 years old male complains of left flank pain. Patient was admitted January 08 and discharged January 09 from [facility] with diagnosis of ureterolithiasis and obstructive uropathy. Patient was seen by Dr. Hillman, urologist and had bilateral lithotripsy 2 days ago with ureteral stent placement on the right side. Patient was discharged home with pain medication. Patient states that he started having severe left flank pain and left low back pain since last night. Patient states that he has intermittent chills at home. Patient states that he has severe nausea unable to keep down pain medication. Patient has been taking Zofran as needed for nausea without much relief. Patient denies any chest pain or shortness of breath. Patient denies any dysuria frequency. On a scale of 1-10 the pain is a 10. Patient had CT scan which showed placement Rt double J stent with slight reduction in degree of hydronephrosis on right,unchanged Left hydronephrosis and left ureteral stones. Urology aware of patient and has made patient NPO. Review of Systems Musculoskeletal: COMPLAINS OF: Back pain Past Family Social History Past Medical History hx kidney stones ,RLS,recent kidney insufficiency due to uropathy Past Surgical History lithotripsy recent stent Reported Medications potassium cl 10meq tid,flomax 0.4 mg pramipexole .125 qd Allergies: Coded Allergies: No Known Allergies (Unverified , 01/11/18) Social History NS,ND Physical Exam Vital Signs Vital Signs Date Time Temp Pulse Resp B/P (MAP) Pulse Ox O2 Delivery O2 Flow Rate FiO2 01/11/18 19:32 99.4 84 16 141/72 (95) 100 01/11/18 18:37 20 01/11/18 17:05 98.3 75 20 139/76 (97) 97 Physical Exam GENERAL: This is a well-nourished, well-developed patient, in no apparent distress. SKIN: No rashes, ecchymoses or lesions. Cool and dry. HEAD: Atraumatic. Normocephalic. No temporal or scalp tenderness. EYES: Pupils equal round and reactive. Extraocular motions intact. No scleral icterus. No injection or drainage. ENT: Nose without bleeding, purulent drainage or septal hematoma. Throat without erythema, tonsillar hypertrophy or exudate. Uvula midline. Airway patent. NECK: Trachea midline. No JVD or lymphadenopathy. Supple, nontender, no meningeal signs. CARDIOVASCULAR: Regular rate and rhythm without murmurs, gallops, or rubs. RESPIRATORY: Clear to auscultation. Breath sounds equal bilaterally. No wheezes , rales, or rhonchi. GASTROINTESTINAL: Abdomen soft, non-tender, nondistended. No hepato-splenomegaly , or palpable masses. No guarding. MUSCULOSKELETAL: Extremities without clubbing, cyanosis, or edema. No joint tenderness, effusion, or edema noted. No calf tenderness. Negative Homans sign bilaterally. Left flank pain on movement and at rest NEUROLOGICAL: Awake and alert. Cranial nerves II through XII intact. Motor and sensory grossly within normal limits. Five out of 5 muscle strength in all muscle groups. Normal speech. Laboratory Laboratory Tests Test 01/11/18 17:38 01/11/18 18:20 White Blood Count 6.5 Red Blood Count 4.67 Hemoglobin 13.3 Hematocrit 40.0 Mean Corpuscular Volume 85.7 Mean Corpuscular Hemoglobin 28.6 Mean Corpuscular Hemoglobin Concent 33.3 Red Cell Distribution Width 13.2 Platelet Count 186 Mean Platelet Volume 8.8 Neutrophils (%) (Auto) 78.8 Lymphocytes (%) (Auto) 10.5 Monocytes (%) (Auto) 9.9 Eosinophils (%) (Auto) 0.6 Basophils (%) (Auto) 0.2 Neutrophils # (Auto) 5.1 Lymphocytes # (Auto) 0.7 Monocytes # (Auto) 0.6 Eosinophils # (Auto) 0.0 Basophils # (Auto) 0.0 CBC Comment DIFF FINAL Differential Comment Prothrombin Time 10.6 Prothromb Time International Ratio 1.0 Activated Partial Thromboplast Time 30.6 Blood Urea Nitrogen 25 Creatinine 2.31 Random Glucose 107 Total Protein 6.5 Albumin 3.0 Calcium Level 8.3 Alkaline Phosphatase 77 Aspartate Amino Transf (AST/SGOT) 16 Alanine Aminotransferase (ALT/SGPT) 21 Total Bilirubin 0.8 Sodium Level 136 Potassium Level 4.6 Chloride Level 101 Carbon Dioxide Level 28.6 Anion Gap 6 Estimat Glomerular Filtration Rate 28 Urine Color YELLOW Urine Turbidity HAZY Urine pH 5.5 Urine Specific [place] 1.007 Urine Protein 30 Urine Glucose (UA) NEG Urine Ketones NEG Urine Occult Blood MOD Urine Nitrite NEG Urine Bilirubin NEG Urine Urobilinogen LESS THAN 2.0 Urine Leukocyte Esterase LARGE Urine RBC 93 Urine WBC 36 Urine Squamous Epithelial Cells <1 Urine Bacteria MOD Urine Mucus FEW Microscopic Urinalysis Comment CULTURE INDICATED Date/Time Source Procedure Growth Status 01/11/18 18:20 Urine Random Urine Urine Culture Pending Received Result Diagram: 01/11/18 1738 01/11/18 1738 Imaging Last 24 hours Impressions Chest X-Ray 01/11/181724 Signed Impressions: CONCLUSION: Normal. Abdomen/Pelvis CT 01/11/181724 Signed Impressions: CONCLUSION: 1. Interval placement of a right double-J stent which is in good position. Sli ght reduction in the degree of hydronephrosis on the right. 2. Unchanged left hydronephrosis and left ureteral stones. 3. Multiple tiny hepatic lesions which are poorly characterized on this exam b ut likely relate to cysts. Course in er given reglan and hydromorph which did help Caprini VTE Risk Assessment Caprini VTE Risk Assessment: No/Low Risk (score <= 1) Caprini Risk Assessment Model Point Value = 1 Point Value = 2 Point Value = 3 Point Value = 5 Age 41-60 Minor surgery BMI > 25 kg/m2 Swollen legs Varicose veins or History of unexplained or recurrent spontaneous Oral contraceptives or hormone replacement Sepsis (< 1 month) Serious lung disease, including pneumonia (< 1 month) Abnormal pulmonary function Acute myocardial infarction Congestive heart failure (< 1 month) History of inflammatory bowel disease Medical patient at bed rest Age 61-74 Arthroscopic surgery Major open surgery (> 45 min) Laparoscopic surgery (> 45 min) Malignancy Confined to bed (> 72 hours) Immobilizing plaster cast Central venous access Age >= 75 History of VTE Family history of VTE Factor V Leiden Prothrombin [id number] Lupus anticoagulant Anticardiolipin antibodies Elevated serum homocysteine Heparin-induced thrombocytopenia Other congenital or acquired thrombophilia Stroke (< 1 month) Elective arthroplasty Hip, pelvis, or leg fracture Acute spinal cord injury (< 1 month) Prophylaxis Regimen Total Risk Factor Score Risk Level Prophylaxis Regimen 0-1 Low Early ambulation 2 Moderate Order ONE of the following: *Sequential Compression Device (SCD) *Heparin 5000 units SQ BID 3-4 Higher Order ONE of the following medications: *Heparin 5000 units SQ TID *Enoxaparin/Lovenox 40 mg SQ daily (WT < 150 kg, CrCl > 30 mL/min) *Enoxaparin/Lovenox 30 mg SQ daily (WT < 150 kg, CrCl > 10-29 mL/min) *Enoxaparin/Lovenox 30 mg SQ BID (WT < 150 kg, CrCl > 30 mL/min) AND/OR *Sequential Compression Device (SCD) 5 or more Highest Order ONE of the following medications: *Heparin 5000 units SQ TID (Preferred with Epidurals) *Enoxaparin/Lovenox 40 mg SQ daily (WT < 150 kg, CrCl > 30 mL/min) *Enoxaparin/Lovenox 30 mg SQ daily (WT < 150 kg, CrCl > 10-29 mL/min) *Enoxaparin/Lovenox 30 mg SQ BID (WT < 150 kg, CrCl > 30 mL/min) AND *Sequential Compression Device (SCD) Assessment and Plan Problem List: (1) Obstructive uropathy ICD Codes: N13.9 - Obstructive and reflux uropathy, unspecified Status: Acute Plan: IV pain medication and reglan and zofran for nausea IV rocephin Urology aware of patient (2) Ureterolithiasis ICD Codes: N20.1 - Calculus of ureter Status: Acute Plan: as above further plan as per urology Assessment and Plan as above Code Status full Discussed Condition With patient and Physician Certification 2 Midnight Certification Type: Admission for Inpatient Services Order for Inpatient Services The services are ordered in accordance with Medicare regulations or non- Medicare payer requirements, as applicable. In the case of services not specified as inpatient-only, they are appropriately provided as inpatient services in accordance with the 2-midnight benchmark. Estimated LOS (days): 3 3 days is the estimated time the patient will need to remain in the hospital, assuming treatment plan goals are met and no additional complications. Post-Hospital Plan: Home Torrey Hawkins MD January 11, 2018 21:26
--- NOTE | 2018-01-11 21:27 | EKG ---
Date Performed: 01/11/2018 Time Performed: 17:59:33 PTAGE: 67 years EKG: Sinus rhythm NORMAL ECG PREVIOUS TRACING : 09/06/1999 12.17 No significant change from previous tracing noted. DOCTOR: Joey Marina Interpretating Date/Time 01/11/2018 21:25:35
[2018-01-11] MEDS: DOCUSATE SODIUM 50 MG/SENNA 8.6 MG TAB PO SCH (23:30)
[2018-01-11] MEDS: SODIUM CHLOR 0.45% 1000 ML INJ 1,000 ML IV SCH (23:30)
[2018-01-11] MEDS: TAMSULOSIN HCL 0.4 MG CAP PO SCH (23:30)
[2018-01-11] MEDS: HYDROmorphone HCL PF 2 MG/ML VIAL IV PUSH PRN (23:32)
[2018-01-11] MEDS: METOCLOPRAMIDE HCL 10 MG/2 ML VIAL IV PUSH PRN (23:32)
[2018-01-12] VITALS (7 sets, daily range): BP systolic 125–156; BP diastolic 70–77; PULSE 80–91; RESP 15–18; TEMP 97.5–99.8; O2SAT 91–96
[2018-01-12] MEDS: HYDROmorphone HCL PF 2 MG/ML VIAL IV PUSH PRN ×3 (03:19→15:10)
[2018-01-12 06:00] LABS: AUTOMATED NEUTROPHIL # 4.8 TH/MM3 (1.8-7.7); BASOPHIL % 0.3 % (0.0-2.0); EOSINOPHIL % 0.3 % (0.0-4.0); HEMATOCRIT 37.9 % (39.0-51.0); HEMOGLOBIN 12.9 GM/DL (13.0-17.0); LYMPH % 10.6 % (9.0-44.0); LYMPHOCYTE # 0.7 TH/MM3 (1.0-4.8); MEAN CELL VOLUME 85.3 FL (80.0-100.0); MEAN CORPUSCULAR HEMOGLOBIN 29.1 PG (27.0-34.0); MEAN CORPUSCULAR HGB CONC 34.1 % (32.0-36.0); MEAN PLATELET VOLUME 8.4 FL (7.0-11.0); MONO % 10.1 % (0.0-8.0); MONOCYTE # 0.6 TH/MM3 (0-0.9); NEUT % 78.7 % (16.0-70.0); PLATELET COUNT 183 TH/MM3 (150-450); RED BLOOD COUNT 4.45 MIL/MM3 (4.50-5.90); RED CELL DISTRIBUTION WIDTH 12.6 % (11.6-17.2); WHITE BLOOD COUNT 6.1 TH/MM3 (4.0-11.0)
[2018-01-12] MEDS ORDERED: CHLORHEXIDINE GLUCONATE 2 % 1 PACK (2 CLOTHS) TOPICAL PRN (06:15)
[2018-01-12] MEDS ORDERED: SODIUM CHLORID 0.9% 500 ML IV PRN (06:15)
[2018-01-12] MEDS ORDERED: METOPROLOL TARTRATE 25 MG TAB PO PRN (06:15)
[2018-01-12] MEDS ORDERED: LACTATED RINGER'S 1000 ML IV PRN (06:15)
[2018-01-12] MEDS ORDERED: POVIDONE IODINE 5% (ANTISEPSIS KIT) 4 APPLICATIONS EACH NARE PRN (06:15)
[2018-01-12 06:19] LABS: BICARBONATE 27.4 MEQ/L (21.0-32.0); CALCIUM 8.2 MG/DL (8.5-10.1); CREATININE 2.13 MG/DL (0.60-1.30)
[2018-01-12] MEDS ORDERED: IMIT50TA PO ×2 (06:40)
[2018-01-12] MEDS ORDERED: SUMAtriptan SUCCINATE 50 MG TAB PO PRN (08:00)
--- NOTE | 2018-01-12 08:20 | RADRPT ---
EXAM DATE: 01/12/2018 8:10 AM EDT AGE/SEX: 67 years / Male INDICATIONS: Left flank pain after lithotripsy 3 days ago and stent placement in right kidney. CLINICAL DATA: This is the patient's subsequent encounter. Patient reports that signs and symptoms h ave been present for 4 - 6 days and indicates a pain score of 3/10. MEDICAL/SURGICAL HISTORY: Renal calculi. Lithotripsy. COMPARISON: No prior [facility] exams available for comparison. FINDINGS: The abdominal bowel gas pattern is normal. No abnormal masses, calcifications, or organomegaly is s een. The osseous structures are unremarkable. Right-sided nephroureteral stent appears to be in good position. Bilateral renal calculi largest in the lower pole left kidney measures 9 mm and 2 calculi in the lower pole right kidney measure 6 and 7 mm. There are some other smaller calculi bilaterally. Phleboliths in the pelvis. Questionable calculus along the proximal right ureteral stent. A left CONCLUSION: Bilateral renal calculi. Electronically signed by: Jose Tobar MD 01/12/2018 8:19 AM EDT
[2018-01-12] MEDS: METOCLOPRAMIDE HCL 10 MG/2 ML VIAL IV PUSH PRN ×2 (08:36→15:15)
[2018-01-12] MEDS: SODIUM CHLORIDE 0.9% FLUSH 10 ML FLUSH IV FLUSH SCH (08:37)
[2018-01-12] MEDS: PRAMIPEXOLE DIHYDROCHLORIDE 0.25 MG TAB PO SCH ×2 (08:37→10:47)
[2018-01-12] MEDS: DOCUSATE SODIUM 50 MG/SENNA 8.6 MG TAB PO SCH (08:37)
[2018-01-12] MEDS: POTASSIUM CHLORIDE 10 MEQ CAP PO SCH ×3 (08:37→17:24)
[2018-01-12] MEDS: TAMSULOSIN HCL 0.4 MG CAP PO SCH (08:37)
[2018-01-12] MEDS: SODIUM CHLOR 0.45% 1000 ML INJ 1,000 ML IV SCH (08:41)
[2018-01-12] MEDS ORDERED: ALLOPURINOL 100 MG TAB PO SCH (09:00)
[2018-01-12] MEDS ORDERED: oxyCODONE/ACETAMINOPHEN 5 MG/325 MG TAB PO PRN ×2 (09:30)
--- NOTE | 2018-01-12 10:08 | MB ---
cc: Laron Rios MD DATE: 01/12/2018 REASON FOR CONSULT: 1. Left ureteral calculi. 2. Left flank pain. 3. Bilateral renal calculi. HISTORY OF PRESENT ILLNESS: The patient is a 67-year-old male with a history of kidney stones who presented to [place] [facility] with complaints of left flank pain described as sharp and stabbing, 10/10 in nature, associated with nausea. He had been taking oral pain medication with Zofran, but was unable to keep any medications down. The patient had a CT scan protocol done last night in the ER and was found to have bilateral renal calculi as well as a right ureteral stent as well 2 left renal calculi approximately 7 mm in length causing mild hydronephrosis. The patient was admitted for pain control and urology was consulted. According to the patient, the patient underwent bilateral lithotripsy by Dr. Hillman on Friday after being discharged on 01/08/2018 with bilateral stones. He had a stent placed on the right side, but did not have a stent placed on the left side. He was discharged home with pain medication on the . The patient states he started having severe left flank pain, nausea and low back pain since Friday night. A KUB was done this morning which did not show any evidence of the left ureteral calculi, but I suspect uric acid stones based on how severe it is on the CAT scan. The patient states last night his pain was a 10, but today it is just a 2. He denies fevers, chills, nausea, vomiting, dysuria, or hematuria. He states that since he feels better, he is not interested in having a stent at this time, but rather be observed. He has been battling kidney stones for a number years, which he has passed some on his own. He is in between urologists at that time, but most recently had the surgery, as mentioned above, by Dr. Hillman. REVIEW OF SYSTEMS: See HPI. All other systems reviewed and otherwise are negative. PAST MEDICAL HISTORY: Significant for kidney stones and BPH. PAST SURGICAL HISTORY: Circumcision, multiple lithotripsies in the past including most recently 3 days ago. CURRENT MEDICATIONS: Include: Potassium chloride 10 mEq t.i.d. and Flomax 0.4 mg daily. ALLERGIES: NO KNOWN DRUG ALLERGIES. SOCIAL HISTORY: Denies smoking, alcohol or illicit drugs. He is . PHYSICAL EXAMINATION: VITAL SIGNS: T-max 99.8, T-current 99.6, pulse 85, respiratory rate 18, BP 125/70, saturating 99% on room air. GENERAL: He is alert and oriented x 3 in no apparent distress. He is a pleasant gentleman who appears his stated age. HEENT: Head is normocephalic, atraumatic. Eyes, no sclerae icterus. Extraocular muscles intact. NECK: Supple. Trachea is midline. No JVD. LUNGS: Clear to auscultation bilaterally. No wheezes, rales or rhonchi. HEART: Regular rate and rhythm. No murmurs, gallops, or rubs. ABDOMEN: Soft, nontender, nondistended, positive bowel sounds. GENITOURINARY: He has no CVA tenderness bilaterally. Penis is circumcised. Testes are descended bilaterally, normal in size and consistent without mass. RECTAL EXAM: Not indicated. EXTREMITIES: Nontender. No clubbing, cyanosis or edema. NEUROLOGIC: Cranial nerves 2-12 intact. Strength 5/5 all 4 extremities. SKIN: No ulcers or rashes. PSYCHIATRIC: Normal affect. Answers questions appropriately. LABORATORY DATA: White count 6.1, hemoglobin 12.9, hematocrit 37.9, platelet count 183. Sodium 139, potassium 4.7, chloride 105, bicarbonate 27.4, BUN 20, creatinine 2.13, down from 2.31. Urine showed moderate blood, large leukocyte esterase. Culture currently pending. IMAGING STUDIES: CT abdomen and pelvis is without contrast. Images were reviewed and interpreted by myself. I do agree with the radiologist's report, the patient has bilateral nonobstructing stones with right ureteral stent in proper position. He has multiple left renal ureteral calculi (7 mm in length with some mild hydronephrosis). ASSESSMENT: The patient is a 67-year-old male with a history of kidney stones, status post bilateral ureteroscopy with insertion of right ureteral stent who complains of left flank pain and has several large left ureteral calculi, and mild hydronephrosis. PLAN: I recommend the patient undergo cystoscopy, left ureteral stent placement, but the patient declined at this time as he states his pain is feeling better. Therefore, we will start the patient on a regular diet and start him on oral pain medications; however, if his pain is not controlled by oral pain medication and/or his clinical picture worsens, then we will need to proceed with a stent placement. I also recommend continuing IV fluids and Flomax, as well as straining all his urine. We will make the patient n.p.o. after midnight this evening just in case his condition worsens. This case was discussed with the patient and the hospitalist as well. Thank you for this consult. Please call with any questions. We will follow along with you. Laron Rios MD EMF/DL , 09:33 AM , 10:07 AM
--- NOTE | 2018-01-12 11:01 | HHI.PR ---
Subjective Remarks Patient resting in bed Reports flank pain is currently tolerable, has improved since admission Patient complains of restless leg syndrome which is chronic for him Objective Vitals Vital Signs Date Time Temp Pulse Resp B/P (MAP) Pulse Ox O2 Delivery O2 Flow Rate FiO2 01/12/18 09:41 16 01/12/18 08:00 97.6 83 16 150/75 (100) 91 01/12/18 04:00 99.6 85 18 125/70 (88) 94 01/12/18 01:37 Room Air 01/12/18 00:00 99.8 91 18 134/73 (93) 93 01/11/18 19:32 99.4 84 16 141/72 (95) 100 01/11/18 18:37 20 01/11/18 17:05 98.3 75 20 139/76 (97) 97 Result Diagram: 01/12/18 0540 01/12/18 0540 Other Results Laboratory Tests Test 01/11/18 17:38 01/11/18 18:20 01/12/18 05:40 White Blood Count 6.5 TH/MM3 6.1 TH/MM3 Red Blood Count 4.67 MIL/MM3 4.45 MIL/MM3 Hemoglobin 13.3 GM/DL 12.9 GM/DL Hematocrit 40.0 % 37.9 % Mean Corpuscular Volume 85.7 FL 85.3 FL Mean Corpuscular Hemoglobin 28.6 PG 29.1 PG Mean Corpuscular Hemoglobin Concent 33.3 % 34.1 % Red Cell Distribution Width 13.2 % 12.6 % Platelet Count 186 TH/MM3 183 TH/MM3 Mean Platelet Volume 8.8 FL 8.4 FL Neutrophils (%) (Auto) 78.8 % 78.7 % Lymphocytes (%) (Auto) 10.5 % 10.6 % Monocytes (%) (Auto) 9.9 % 10.1 % Eosinophils (%) (Auto) 0.6 % 0.3 % Basophils (%) (Auto) 0.2 % 0.3 % Neutrophils # (Auto) 5.1 TH/MM3 4.8 TH/MM3 Lymphocytes # (Auto) 0.7 TH/MM3 0.7 TH/MM3 Monocytes # (Auto) 0.6 TH/MM3 0.6 TH/MM3 Eosinophils # (Auto) 0.0 TH/MM3 0.0 TH/MM3 Basophils # (Auto) 0.0 TH/MM3 0.0 TH/MM3 CBC Comment DIFF FINAL DIFF FINAL Differential Comment Prothrombin Time 10.6 SEC Prothromb Time International Ratio 1.0 RATIO Activated Partial Thromboplast Time 30.6 SEC Blood Urea Nitrogen 25 MG/DL 20 MG/DL Creatinine 2.31 MG/DL 2.13 MG/DL Random Glucose 107 MG/DL 102 MG/DL Total Protein 6.5 GM/DL Albumin 3.0 GM/DL Calcium Level 8.3 MG/DL 8.2 MG/DL Alkaline Phosphatase 77 U/L Aspartate Amino Transf (AST/SGOT) 16 U/L Alanine Aminotransferase (ALT/SGPT) 21 U/L Total Bilirubin 0.8 MG/DL Sodium Level 136 MEQ/L 139 MEQ/L Potassium Level 4.6 MEQ/L 4.7 MEQ/L Chloride Level 101 MEQ/L 104 MEQ/L Carbon Dioxide Level 28.6 MEQ/L 27.4 MEQ/L Anion Gap 6 MEQ/L 8 MEQ/L Estimat Glomerular Filtration Rate 28 ML/MIN 31 ML/MIN Urine Color YELLOW Urine Turbidity HAZY Urine pH 5.5 Urine Specific [place] 1.007 Urine Protein 30 mg/dL Urine Glucose (UA) NEG mg/dL Urine Ketones NEG mg/dL Urine Occult Blood MOD Urine Nitrite NEG Urine Bilirubin NEG Urine Urobilinogen LESS THAN 2.0 MG/DL Urine Leukocyte Esterase LARGE Urine RBC 93 /hpf Urine WBC 36 /hpf Urine Squamous Epithelial Cells <1 /hpf Urine Bacteria MOD /hpf Urine Mucus FEW /lpf Microscopic Urinalysis Comment CULTURE INDICATED Imaging Last 24 hours Impressions Chest X-Ray 01/11/181724 Signed Impressions: CONCLUSION: Normal. Abdomen/Pelvis CT 01/11/181724 Signed Impressions: CONCLUSION: 1. Interval placement of a right double-J stent which is in good position. Sli ght reduction in the degree of hydronephrosis on the right. 2. Unchanged left hydronephrosis and left ureteral stones. 3. Multiple tiny hepatic lesions which are poorly characterized on this exam b ut likely relate to cysts. Objective Remarks GENERAL: This is a well-nourished, well-developed patient, in no apparent distress. CARDIOVASCULAR: Regular rate and rhythm RESPIRATORY: Clear to auscultation. Breath sounds equal bilaterally. GASTROINTESTINAL: Abdomen soft, non-tender, nondistended. Normal active bowel sounds MUSCULOSKELETAL: Extremities without clubbing, cyanosis, or edema. NEURO: Awake and alert. Moves all ext x4 A/P Problem List: (1) Obstructive uropathy ICD Codes: N13.9 - Obstructive and reflux uropathy, unspecified Status: Acute Plan: Obstructive uropathy Ureterolithiasis Left hydronephrosis The patient is a 67-year-old male with a history of kidney stones, status post bilateral ureteroscopy with insertion of right ureteral stent who complains of left flank pain and has several large left ureteral calculi, and mild hydronephrosis. -Continue IV pain medication -Continue Reglan and zofran for nausea -Continue IV Rocephin -IV fluids for hydration -Continue Flomax 0.4 mg every 12 hours -Consultation placed to urology -Patient seen by Dr. Rios -Initially Dr. roy recommended surgical intervention with cystoscopy and left ureteral stent placement today patient declined then changed his mind and is willing to have procedure today -NPO Restless leg syndrome Continue patient's Mirapex (2) Ureterolithiasis ICD Codes: N20.1 - Calculus of ureter Status: Acute Assessment and Plan Patient examined. Assessment and plan formulated with Ro Rosas PA-C. I agree with the above. left ureter stones x 2. CT reviewed. discussed with pt and Dr Rios To OR today for stent then d/c home. pt already has double j stent on right. Ro Rosas January 12, 2018 11:01 Howie Escobar MD January 12, 2018 21:36
[2018-01-12] MEDS ORDERED: PRAMIPEXOLE DIHYDROCHLORIDE 0.25 MG TAB PO ONE (12:00)
[2018-01-12] MEDS ORDERED: HYDROmorphone HCL PF 2 MG/ML VIAL ONE (16:22)
[2018-01-12] MEDS ORDERED: ceFAZolin INJ 1,000 MG VIAL IV ONE ×2 (16:23→18:16)
[2018-01-12] MEDS ORDERED: IOHEXOL 350 MG/ML 50 ML BTL (for RAD DIAG) OTHER ONE (16:45)
[2018-01-12] MEDS ORDERED: DO NOT ADM ANY ANTICOAGULANT DRUGS PRN (17:05)
[2018-01-12] MEDS ORDERED: OXYC1TAB63 PO (17:33)
[2018-01-12] MEDS ORDERED: CIPR250T52 PO ×2 (17:52)
[2018-01-12] MEDS ORDERED: CIPR-9 PO ×2 (17:53)
[2018-01-12] MEDS ORDERED: COLA100C5 PO ×2 (17:54)
[2018-01-12] MEDS ORDERED: PROPOFOL 200 MG/20 ML AMP IV ONE (18:16)
[2018-01-12] MEDS ORDERED: ONDANSETRON HCL 4 MG/2 ML VIAL IV PUSH ONE (18:16)
[2018-01-12] MEDS ORDERED: LIDOCAINE HCL 1% PF 5 ML SYRINGE OTHER ONE (18:16)
[2018-01-12] MEDS ORDERED: DEXAMETHASONE SOD PHOS 4 MG/ML VIAL IV ONE (18:16)
--- NOTE | 2018-01-12 19:41 | MP ---
cc: Laron Rios MD [facility], DATE OF OPERATION: 01/12/2018 PREOPERATIVE DIAGNOSES: 1. Left flank pain. 2. Left ureteral calculi. 3. Status post bilateral lithotripsy. POSTOPERATIVE DIAGNOSES: 1. Left flank pain. 2. Left ureteral calculi. 3. Status post bilateral lithotripsy. PROCEDURES PERFORMED: 1. Cystourethroscopy. 2. Left retrograde pyelogram. 3. Insertion of left ureteral stent. SURGEON: Laron Rios MD ANESTHESIA: General. COMPLICATIONS: None. ANTIBIOTICS, MEDICATION: Ancef, Ringer's IV. DRAINS: A 6 x 28 double-J left ureteral stent. SPECIMENS: None. ESTIMATED BLOOD LOSS: Minimal. DISPOSITION: Stable to recovery. INDICATIONS FOR PROCEDURE: The patient is a 67-year-old male with bilateral kidney stones. The patient underwent a bilateral lithotripsy and right ureteral stent placement on Friday, 01/[address] Spears. However, he developed acute onset of left flank pain over the last night, came to [place] ER for evaluation. He was found to have elevated creatinine, up to 2.3. He had a CT abdomen and pelvis without contrast performed, which showed 2 separate 7 mm stones in his left ureter causing left hydronephrosis. The patient was admitted and presents today for placement of a left ureteral stent. After risks, benefits and alternatives were explained to the patient, including possibility of not being able to place a stent due to the large stones, he elected to proceed and informed consent was obtained. DETAILS OF THE PROCEDURE: The patient was properly identified and brought back to the cystoscopy suite, was laid supine on cystoscopy table. Proper timeout was performed. Under the direction of Anesthesiology, the patient was intubated and induced under general anesthetic. Preoperative antibiotics in the form of Ancef 1 gram IV was given one hour before start of procedure. The patient was placed in dorsal lithotomy position, prepped and draped in the normal sterile surgical fashion. I passed the rigid cystoscope with 22-Armenian sheath into the patient's bladder per urethra without any difficulty. The bladder was examined. No evidence of bladder tumors, stones or diverticula. He did have multiple small stone fragments likely from his lithotripsy. These were irrigated out. At this time, I found his left ureteral orifice. I passed a 5-Armenian open-end ureteral catheter into the side of the left ureteral orifice. A left retrograde pyelogram was performed, which showed 2 large filling defects in his mid and proximal ureter, consistent with the stones found on CT. Through the indwelling ureteral catheter, I passed a wire up into the upper pole without difficulty. The ureteral catheter was then removed. I passed a 6 x 28 double-J stent up into the left kidney with the proximal portion in the upper pole. The wire was removed and a distal curl was seen in the bladder. The bladder was then drained. This concluded the procedure. The patient was extubated and sent to recovery in stable condition. He will be then discharged home later today, as long as he wakes up well from anesthesia. He can follow up with either Dr. Spears or myself as an outpatient for definitive treatment of the stones. MD CLAUDIA Diez/ISAAC/aldo , 04:55 PM , 05:50 PM
[2018-01-12] MEDS ORDERED: cefTRIAXone INJ 1,000 MG in SODIUM CHLORIDE 0.9% INJ 100 ML IV SCH (20:00)
== END 2018-01-12 18:17 | disposition home or self-care (01) | DRG 694 ==
LOC: NEPE 17:01 → NEDA 19:45 → N06B 22:05
PROVIDERS: ADMIT Hospitalist; ATTEND Hospitalist
PROC: 0T778DZ Dilation of Left Ureter with Intraluminal Device, Via Natural or Artificial Opening Endoscopic (ICD-10-PCS; principal; 2018-01-12 16:23)
DX: N13.2 Hydronephrosis with renal and ureteral calculous obstruction (principal); N39.0 Urinary tract infection, site not specified; G25.81 Restless legs syndrome; N40.0 Benign prostatic hyperplasia without lower urinary tract symptoms; Z87.442 Personal history of urinary calculi; R11.0 Nausea; Z96.0 Presence of urogenital implants
CPT/HCPCS: 71045; 74018; 74176; 74420; 80048; 80053; 81001; 85025; 85610; 85730; 87086; 93005; 96361; 96374; 96375; C1769; C2617; J0690; J0696; J1100; J1170; J1200; J2405; J2765; J7030; J7120; Q9967

== ENCOUNTER 2018-02-16 06:23 | Observation (INO) ==
[2018-02-16] MEDS ORDERED: Chlorhexidine Gluconate 2% 1 Pack (2 Cloths) TOPICAL SCH (07:30)
[2018-02-16] MEDS ORDERED: Metoprolol Tartrate 25 MG Tablet PO SCH (07:30)
[2018-02-16] MEDS ORDERED: Propofol Inj 500 MG/50 ML Vial ONE (07:34)
[2018-02-16] MEDS ORDERED: Ketamine Inj 50 MG/5 ML Syringe IV.PUSH ONE (07:35)
[2018-02-16] MEDS ORDERED: Sodium Chlor 0.9% Inj 500 ML IV.SIG SCH (08:00)
[2018-02-16 08:01] LABS: Hematocrit 42.3 % (39.0-51.0); Hemoglobin 14.1 gm/dL (13.0-17.0); Mean Corpuscular HGB Conc 33.4 % (32.0-36.0); Mean Corpuscular Hemoglobin 28.5 pg (27.0-34.0); Mean Corpuscular Volume 85.3 fL (80.0-100.0); Mean Platelet Volume 8.4 fL (7.0-11.0); Platelet Count 169 th/mm3 (150-450); Red Blood Count 4.96 mil/mm3 (4.50-5.90); Red Cell Distribution Width 13.3 % (11.6-17.2); White Blood Count 3.7 th/mm3 (4.0-11.0)
[2018-02-16] MEDS ORDERED: Lidocaine PF 1% Inj 5 ML Syringe INFILTRATN ONE (12:00)
[2018-02-16] MEDS ORDERED: Phenylephrine/NS 1000 MCG/10ML Syringe IV.PUSH ONE (12:00)
[2018-02-16] MEDS ORDERED: Glycopyrrolate Inj 1 MG/5 ML Syringe IV.PUSH ONE (12:00)
[2018-02-16] MEDS ORDERED: Iohexol 300 MG/ML 50 ML Vial (for Rad Diag) IVCONTRAST ONE (15:05)
--- NOTE | 2018-02-16 15:40 | P.OP ---
- Preoperative Diagnosis (1) Renal calculus, bilateral - Postoperative Diagnosis (1) Ureteral calculus, left (2) Renal calculus, bilateral Date of procedure: 02/16/18 Procedure: Cystoscopy, bilateral ureteral stent removal, bilateral retrograde pyelogram studies, right ureteroscopy/renoscopy with laser lithotripsy right lower pole renal calculi, left ureteroscopy with laser lithotripsy ureteral calculi, left renoscopy with laser lithotripsy left lower pole renal calculus and bilateral ureteral catheter placement. Anesthesia: GETA Surgeon: Isidro Scott MD Estimated blood loss (mL): 10 Pathology: other (Right and left renal calculi submitted for chemical composition analysis) Operation and Findings: Patient was brought to the operating room suite and placed supine on the cystoscopy table. He was then placed under general anesthesia. He was then repositioned in the dorsolithotomy position and prepped and draped in normal sterile fashion. After an appropriate timeout was undertaken I proceeded with cystoscopic evaluation utilizing the rigid cystoscope with the 20 [place] sheath and 30 lens. The urethra was patent without stricture formation, the prostatic urethra had some mild enlargement to the lateral lobes and further passive cystoscope within urinary bladder demonstrated the previously placed bilateral ureteral stents to be protruding from the ureteral orifices. I then proceeded to grasp the right ureteral stent with flexible forceps and brought the stent out to the urethral meatus. A sensor 0.035 wire was then advanced through this stent and advanced all the way up into the right renal pelvis under fluoroscopic guidance. With the wire in place the stent was discarded. A ureteral access catheter was then utilized and easily advanced up the right ureter over the previously placed wire. The flexible ureteroscope was then advanced through the access sheath and careful inspection was made within the intrarenal collecting system. The patient was noted to have multiple stones involving the inferior pole. The 200 m holmium laser fiber was then utilized and the stones were broken up into smaller fragments. The fragments were then retrieved utilizing the 2.4 [place] stone basket. Once this was accomplished the flexible ureteroscope and access sheath were removed. A 6 [place] open- ended ureteral catheter was then advanced over the sensor wire once the catheter was fully advanced a sensor wire was withdrawn. A right retrograde pyelogram study was then performed to outline the collecting system. I then approached the left side. In similar fashion the left stent was removed and when I attempted to pass the ureteral access sheath some resistance was met mid ureter. I then removed the access sheath obturator and advanced the flexible ureteroscope whereby the patient was noted to have multiple obstructing right mid ureteral calculi. The calculi within ablated with the 200 m holmium laser fiber to multiple smaller fragments and the fragments were retrieved with the 2.4 [place] stone basket. I gradually worked my way up to the left intrarenal collecting system and careful inspection demonstrated a large stone involving the most inferior pole calyx. Once again using using the 200 m holmium laser fiber I proceeded with laser lithotripsy of this calculus. Stone fragments were then retrieved with the 2.4 [place] stone basket. I subsequently removed the flexible ureteroscope along with the access sheath and passed a 6 [place] open-ended ureteral catheter over the previously placed sensor wire and the wire was withdrawn. A retrograde pyelogram study was performed to outline the collecting system on the left. I then proceeded with passing a 18 [place] 10 cc Reyes catheter and both ureteral catheters were anchored to the Reyes via a connector. All 3 catheters were then placed to gravity drainage. The patient tolerated the procedures without complications and was transferred to the PACU in satisfactory condition.
[2018-02-16] MEDS ORDERED: HYDROmorphone PF Inj 2 MG/ML Vial IV.PUSH PRN (15:44)
[2018-02-16] MEDS ORDERED: Post-op Orders (for Pharmacy) OTHER STA (15:44)
[2018-02-16] MEDS ORDERED: fentaNYL Citrate Inj 100 MCG/2 ML Ampul ONE (16:12)
[2018-02-16] MEDS ORDERED: Morphine Inj 4 MG/ML Vial ONE (16:13)
[2018-02-16] MEDS ORDERED: *Ondansetron Inj 4 MG/2 ML Vial PERIprocedural Use ONLY ONE (17:47)
[2018-02-16] MEDS: Dextrose 5%/NaCl 0.45% Inj 1,000 ML IV.CONT SCH (19:07)
[2018-02-16] MEDS ORDERED: Gabapentin 300 MG Capsule PO ONE (21:45)
[2018-02-17] MEDS: Dextrose 5%/NaCl 0.45% Inj 1,000 ML IV.CONT SCH ×2 (04:53→09:42)
--- NOTE | 2018-02-17 09:56 | XR ---
EXAM DATE: 02/17/2018 9:35 AM EDT AGE/SEX: 67 years / Male INDICATIONS: Status post lithotripsy and ureteral catheter placement. CLINICAL DATA: This is the patient's subsequent encounter. Patient reports that signs and symptoms h ave been present for 1 week and indicates a pain score of 3/10. MEDICAL/SURGICAL HISTORY: . Renal calculi. . Lithotripsy. Appendectomy. COMPARISON: [facility], ABDOMEN KUB ONLY, 01/12/2018. . FINDINGS: Interval placement of new bilateral ureteral calculi. Multiple loops of marginally dilated small bow el and colon throughout the abdomen which largely obscures small abnormalities in the region of the k idneys and ureters. There is noted 1 cm calcified calculus in the inferior pole the left kidney is ag ain noted. Two calcified calculi in the inferior pole the right kidney are potentially obscured by refugio wel gas and stool in the colon. Calcified density projecting over the proximal right ureteral stent o n prior exam is also potentially obscured by overlying bowel gas in stool. Multiple calcifications in the pelvis again likely reflect phleboliths. Remainder of the exam is unchanged. CONCLUSION: 1. Diffuse marginally distended loops of small bowel and colon which may reflect mild adynamic ileus . 2. Stable 1 cm calculus in the inferior pole of the left kidney. 3. Bowel loops potentially obscure any additional small renal and ureteral calculi. Electronically signed by: Robin Garcia MD 02/17/2018 9:55 AM EDT
--- NOTE | 2018-02-17 11:29 | P.DS ---
Date of admission: 02/16/18 19:05 Primary care physician: Ellen Ferrer MD Attending physician on discharge: Isidro Scott Anticipated date of discharge: 02/17/18 Brief History from admission: 67-year-old gentleman with history bilateral renal calculi who status post bilateral ureteral stent placement. Patient was admitted electively to undergo bilateral ureteroscopy with laser lithotripsy of the renal calculi. Please refer to admission history and physical for additional history and pertinent physical findings. DS: Diagnosis - Discharge Diagnosis (1) Renal calculus, bilateral Status: Acute (2) Ureteral calculus, left Status: Acute DS: Medications - Discharge Medications Prescriptions: oxycodone-acetaminophen 1 tab PO Q4H PRN #20 tab PRN Reason: Pain DS: Summary Hospital Course: Admitted on February 16, 2018 and underwent aforementioned procedures without complications. Pt admitted overnight for observation. On post-op day #1, the Reyes and bilateral ureteral catheters were removed and the pt subsequently discharged home. - Time Spent with Patient Total time spent providing and/or coordinating discharge services: - Quality: VTE Deep Vein Thrombosis/Pulmonary Embolism Present on Admission: No Exam Vital signs: Vital Signs 02/16/18 16:00 02/16/18 16:15 02/16/18 16:30 Temperature 97.4 F L Pulse Rate 84 84 93 H Respiratory Rate 14 14 14 Blood Pressure 134/75 143/84 H 156/92 H Pulse Oximetry 100 02/16/18 16:45 02/16/18 17:00 02/16/18 17:15 Temperature Pulse Rate 89 70 74 Respiratory Rate 14 15 15 Blood Pressure 150/85 H 133/75 143/85 H Pulse Oximetry 100 100 02/16/18 17:30 02/16/18 18:00 02/16/18 18:30 Temperature 98.0 F Pulse Rate 78 Respiratory Rate 17 15 15 Blood Pressure 144/89 H 144/84 H 136/80 Pulse Oximetry 100 100 02/16/18 20:00 02/17/18 00:00 02/17/18 04:00 Temperature 98.7 F 98.7 F 98.6 F Pulse Rate 86 85 84 Respiratory Rate 16 16 16 Blood Pressure 132/77 135/72 130/75 Pulse Oximetry 100 100 100 02/17/18 08:00 Temperature 98.0 F Pulse Rate 70 Respiratory Rate 18 Blood Pressure 121/70 Pulse Oximetry 96 Intake & Output 02/16/18 02/17/18 02/17/18 18:59 06:59 18:59 Intake Total 2400 / 2400 1340 / 1340 1200 / 1200 Output Total 2 / 2 1500 / 1500 Balance 2398 / 2398 -160 / -160 1200 / 1200 Weight 98 kg Intake: IV 1200 / 1200 1100 / 1100 1200 / 1200 D5W/1/2 NS Inj 1,000 ML @ 125 1000 / 1000 1000 / 1000 mls/hr IV.CONT .Q8H DESTINEY Rx#: [id number] LR 1000 mL Inj 1,000 ML @ 30 1000 / 1000 mls/hr IV.SIG .Q24H DESTINEY Rx#: [id number] Ancef Inj 1,000 MG In NS Inj 200 / 200 100 / 100 200 / 200 100 ML @ 200 mls/hr IV.SIG Q8H DESTINEY Rx#:[id number] Oral 240 / 240 Anesthesia Amount 1200 / 1200 Output: Urine 1500 / 1500 Estimated Blood Loss 2 / 2 Other: Bladder Irrigation Fluid - Amount Drained Indwelling Urethral Catheter 75 Narrative: Reyes catheter draining pink colored urine without clots. - Constitutional no acute distress - Routine HEENT Exam Head: Present: normocephalic Eye: Present: EOMI, PERRL - Routine Neck Exam Present: full ROM - Routine Abdominal Exam Present: soft. Absent: distended - Routine Extremities Exam Absent: cyanosis, clubbing, edema Results Procedures completed during hospitalization: Cystoscopy, bilateral stent removal, bilateral rpg's, bilateral ureteroscopy/ renoscopy with laser lithotripsy. Pending studies at discharge: Pending at discharge 02/16/18 Surgical [PTH] Routine - Impressions ITS Impressions Abdomen X-Ray 02/17/18 00:00 CONCLUSION: 1. Diffuse marginally distended loops of small bowel and colon which may reflect mild adynamic ileus. 2. Stable 1 cm calculus in the inferior pole of the left kidney. 3. Bowel loops potentially obscure any additional small renal and ureteral calculi. Discharge Plan - Discharge Disposition Patient Disposition: 01 Discharge Home - Discharge Condition Condition: Good - Discharge Order Discharge Orders: Discharge Order (Routine); Ordered 02/17/18 Ordered By: Isidro Scott - Discharge Details Anticipated Discharge Date: 02/17/18 - Physicians Team Primary Care Provider: Ellen Ferrer Attending Provider: Isidro Scott P - Rxs /Orders / Referrals /Forms Prescriptions: New oxycodone-acetaminophen 5-325 mg Tablet 1 tab PO Q4H PRN (Reason: Pain) Qty: 20 RF: 0 Continue gabapentin 600 mg Tablet 600 mg PO DAILY loperamide [Imodium A-D] 2 mg Tablet 1 mg PO Q2H PRN (Reason: Diarrhea) potassium citrate 10 mEq (1,080 mg) Tablet Extended Release 10 meq PO TID pramipexole 1.5 mg Tablet Extended Release 24 Hr 1.5 mg PO DAILY Discontinued allopurinol 300 mg Tablet 300 mg PO DAILY tamsulosin 0.4 mg Capsule,Extended Release 24hr 0.4 mg PO DAILY Referrals: Ellen Ferrer MD [Primary Care Provider] - 02/23/18 11:15 am - Discharge Instructions Additional Instructions: Patient to contact my office and arrange a follow-up visit in approximately 3-4 weeks
== END 2018-02-17 13:19 | disposition home or self-care (01) ==
LOC: HSDC 06:23 → N07 06:23
PROVIDERS: ADMIT Urology; ATTEND Urology